=== PATIENT | female | born 1970 | race Two or more races ===

== ENCOUNTER 2024-07-31 08:59 | Outpatient (AMB) | payer MEDICAID, SELFPAY ==
[2024-07-31 09:31] VITALS: BP 123/84; PULSE 75; RESP 18; TEMP 36.3; O2SAT 97; BMI 24.8
--- NOTE | 2024-07-31 09:31 | ORTHONT_ITS ---
Vital signs 07/31/24 09:31 Height 1.47 m Height Method Stated Weight 53.637 kg Weight Measurement Method Standing Scale BMI 24.8 BP 123/84 Blood Pressure Source Automatic Cuff Blood Pressure Location Right Upper Arm Position Sitting Respiration 18 Pulse 75 Pulse Source Monitor Temp 97.4 F Temp Source Temporal Artery Scan Pulse Oximetry (%) 97 Oxygen Delivery Method Room Air Med/Allergies Allergies & Medications Allergies meloxicam Allergy (Mild, Verified 07/31/24 09:32) Rash Medication Reconciliation multivitamin 1 tab PO QDAY 03/23/24 [History Confirmed 07/31/24] acetaminophen 500 mg tablet (Acetaminophen Extra Strength) 1,000 mg (2 x 500 mg) PO Q6H PRN pain #90 tabs 04/02/24 [Rx Confirmed 07/31/24] aspirin 81 mg tablet,delayed release 81 mg PO BID #60 tabs 04/02/24 [Rx Confir med 07/31/24] doxycycline hyclate 100 mg tablet 100 mg PO BID #14 tabs 04/02/24 [Rx Confirmed 07/31/24] oxycodone 5 mg tablet 5 mg PO Q6H PRN pain #28 tabs 04/02/24 [Rx Confirmed 07/31/24] pregabalin 75 mg capsule 75 mg PO BID #45 caps 04/02/24 [Rx Confirmed 07/31/24] sennosides 8.6 mg-docusate sodium 50 mg tablet (Senna-S) 1 tab-cap PO QDAY #30 tabs 04/02/24 [Rx Confirmed 07/31/24] Subjective Visit Visit for: follow up visit, post op #2 and knee Immunization / Flu Flu Vaccine in the Last 12 Months: Yes Flu Vaccine Exclusion Criteria: Already Received History of Present Illness Chief complaint: POST OP KNEE TKA Date of 1st surgery (if applicable): 04/02/24 Patient is 12 weeks status post right total knee replacement. She is happy with her progress. She is not using any assistive device. Personal History Occupation: DISABLE Red flag PMH: none Pain Pain level (0-10): 4 Pain duration: COMES & GOES Pain location: inside (medial), outside (lateral), anterior and posterior Pain quality: sharp, dull and aching Pain timing: increases with activity Associated signs & symptoms: none Ambulatory data Ambulatory device: none Treatments Improvement with previous injections: No Improvement with PT: No Improvement with NSAIDS: n/a Review of Systems Review of Systems: All systems negative unless otherwise noted in HPI. Exam Exam Patient is in no acute distress and is cooperative with the examination today. Patient has a normal mood and affect. Breathing is nonlabored. In no respiratory distress. Bilateral extremities were evaluated and demonstrates sensation intact to light touch. Palpable pedal pulses are present. No significant edema is present. Right knee incision is clean dry intact. Range of motion 0 to 110 degrees Assessment and Plan Problem List (1) Arthritis of both knees: Status: Acute (2) Status post total right knee replacement: Status: Acute Plan 54-year-old female status post right total knee replacement. She is doing well. She has minimal pain She is doing well. We will see her in 4 months. Office Procedures GNS Level of Care Nursing/Assessment Patient Status: Established Patient Nursing Assessment/Reassesment: Medication Reconciliation, Update PMH in EMR and Vital Signs Coordination of Care: Complex Care and Chronic Disease 1-5, Education Complex Pt/Fam, Consent,records obtained, informed consent, Results/Orders obtained and Staff clarify orders Established Patient Charge Established Patient Point Assignment: 95 Established Patient Point Charge: EP Level 3 (80-115) Past Medical History Past Medical History Have you ever been diagnosed with any of the following: Neurological Problems Seizures: No Cardiology Problems Hypercholesterolemia: Yes Congestive Heart Failure: No Respiratory Problems Chronic Obstructive Pulmonary Disease (COPD): No Smoking: No Smoking Exposure: No Stomache/Intestinal Problems Hepatitis: No Genital/Urinary Problems Renal Disease: No Reproductive Problems Previous Pregnancies: Yes Musculoskeletal Problems Arthritis: Yes Endocrine Problems Diabetes Mellitus Type 1: No Diabetes Mellitus Type 2: No Other Problems Hospitalization: No Shingles: No Blood Transfusions: No Blood Transfusion Reaction: No Anesthesia Reactions: No Chicken Pox: Yes Mumps: Yes Cancer: No Surgical History Total Knee Replacement: Yes
== END 2024-07-31 09:53 | disposition home or self-care (01) ==
LOC: HODSRG 08:59
PROVIDERS: PCP Family Medicine; Referring Provider Family Medicine; Supervising Provider Orthopaedic Surgery Adult Reconstructive Orthopaedic Surgery; Visit Provider Orthopaedic Surgery Adult Reconstructive Orthopaedic Surgery
DX: M17.0 Bilateral primary osteoarthritis of knee (principal); Z96.651 Presence of right artificial knee joint; E78.00 Pure hypercholesterolemia, unspecified
CPT/HCPCS: 99213; G0463

== ENCOUNTER 2024-11-20 08:57 | Outpatient (AMB) | payer MEDICAID, SELFPAY ==
[2024-11-20 09:15] VITALS: BP 119/72; PULSE 76; RESP 18; TEMP 36.3; O2SAT 98; BMI 26.5
--- NOTE | 2024-11-20 09:15 | PD.ORTHCLVIS ---
Vital signs 11/20/24 09:15 11/20/24 09:18 Height 1.47 m 1.47 m Height Method Stated Stated Weight 57.408 kg 57.408 kg Weight Measurement Method Standing Scale Standing Scale BMI 26.5 26.5 BP 119/72 119/72 Blood Pressure Source Automatic Cuff Automatic Cuff Blood Pressure Location Right Upper Arm Right Upper Arm Position Sitting Sitting Respiration 18 18 Pulse 76 76 Pulse Source Monitor Monitor Temp 97.3 F 97.3 F Temp Source Temporal Artery Scan Temporal Artery Scan Pulse Oximetry (%) 98 98 Oxygen Delivery Method Room Air Room Air Med/Allergies Allergies & Medications Allergies meloxicam Allergy (Mild, Verified 07/31/24 09:32) Rash Medication Reconciliation multivitamin 1 tab PO QDAY 03/23/24 [History Confirmed 11/20/24] acetaminophen 500 mg tablet (Acetaminophen Extra Strength) 1,000 mg (2 x 500 mg) PO Q6H PRN pain #90 tabs 04/02/24 [Rx Confirmed 11/20/24] aspirin 81 mg tablet,delayed release 81 mg PO BID #60 tabs 04/02/24 [Rx Confirmed 11/20/24] doxycycline hyclate 100 mg tablet 100 mg PO BID #14 tabs 04/02/24 [Rx Confirmed 11/20/24] oxycodone 5 mg tablet 5 mg PO Q6H PRN pain #28 tabs 04/02/24 [Rx Confirmed 11/20/24] pregabalin 75 mg capsule 75 mg PO BID #45 caps 04/02/24 [Rx Confirmed 11/20/24] sennosides 8.6 mg-docusate sodium 50 mg tablet (Senna-S) 1 tab-cap PO QDAY #30 tabs 04/02/24 [Rx Confirmed 11/20/24] Exam Exam Patient is in no acute distress and is cooperative with the examination today. Patient has a normal mood and affect. Breathing is nonlabored. In no respiratory distress. Bilateral extremities were evaluated and demonstrates sensation intact to light touch. Palpable pedal pulses are present. No significant edema is present. Right knee incision is clean dry intact. Range of motion 0 to 110 degrees Left knee is tender to palpation medially. Knee feels stable varus valgus stress of the translation. Range of motion 0 to 100 degrees Assessment and Plan Problem List (1) Arthritis of both knees: Status: Acute (2) Status post total right knee replacement: Status: Acute Plan 54-year-old female status post right total knee replacement. She is doing well. She has minimal pain She is doing well With a right total knee replacement. She would like to get surgery on the left in approximately 6 to 7 months Office Procedures GNS Level of Care Nursing/Assessment Patient Status: Established Patient Nursing Assessment/Reassesment: Medication Reconciliation, Update PMH in EMR and Vital Signs Coordination of Care: Complex Care and Chronic Disease 1-5, Education Complex Pt/Fam, Consent,records obtained, informed consent, Results/Orders obtained and Staff clarify orders Special Needs: Language special needs Established Patient Charge Established Patient Point Assignment: 95 Established Patient Point Charge: EP Level 3 (80-115) MA Intake Visit Data Collection New Patient or Established: Established Patient (seen at [facility] within 3 years) Reason for Visit:: 4 MONTH FOLLLOW UP Seen by Clinical Staff ONLY (RN/MA): No Verbal consent obtained for Telemed visit?: No [employer] Required: No PCP or OBGYN visit in last 3 months: Yes Hx Now: No Do You Feel Safe at Home: Yes Authorities Contacted: N/A Questionairres Past Medical History Past Medical History Have you ever been diagnosed with any of the following: Neurological Problems Seizures: No Cardiology Problems Hypercholesterolemia: Yes Congestive Heart Failure: No Respiratory Problems Chronic Obstructive Pulmonary Disease (COPD): No Smoking: No Smoking Exposure: No Stomache/Intestinal Problems Hepatitis: No Genital/Urinary Problems Renal Disease: No Reproductive Problems Previous Pregnancies: Yes Musculoskeletal Problems Arthritis: Yes Endocrine Problems Diabetes Mellitus Type 1: No Diabetes Mellitus Type 2: No Other Problems Hospitalization: No Shingles: No Blood Transfusions: No Blood Transfusion Reaction: No Anesthesia Reactions: No Chicken Pox: Yes Mumps: Yes Cancer: No Surgical History Total Knee Replacement: Yes Subjective Visit Visit for: follow up visit and knee Immunization / Flu Flu Vaccine in the Last 12 Months: No Flu Vaccine Exclusion Criteria: No Exclusion Criteria History of Present Illness Chief complaint: Right knee pain Augustine is a pleasant 54-year-old female who is status post right total knee replacement 8 months ago. She reports the left knee is what is bothering her and is affecting her quality life. She cannot get surgery as her daughter is having twins soon and she needs to be available to take care of them. She would like to get surgery in June Pain Pain level (0-10): 6 Pain duration: COMES AND GOES Pain location: inside (medial), outside (lateral) and anterior Pain quality: sharp, dull and aching Pain timing: increases with activity Associated signs & symptoms: none Ambulatory data Ambulatory device: none Treatments Improvement with previous injections: No Improvement with PT: No Improvement with NSAIDS: no Review of Systems Review of Systems: All systems negative unless otherwise noted in HPI.
[2024-11-20 09:18] VITALS: BP 119/72; PULSE 76; RESP 18; TEMP 36.3; O2SAT 98; BMI 26.5
== END 2024-11-20 09:23 | disposition home or self-care (01) ==
LOC: HODSRG 08:57
PROVIDERS: PCP Family Medicine; Referring Provider Family Medicine; Supervising Provider Orthopaedic Surgery Adult Reconstructive Orthopaedic Surgery; Visit Provider Orthopaedic Surgery Adult Reconstructive Orthopaedic Surgery
DX: M17.0 Bilateral primary osteoarthritis of knee (principal); Z96.651 Presence of right artificial knee joint; E78.00 Pure hypercholesterolemia, unspecified
CPT/HCPCS: 99213; G0463

== ENCOUNTER 2025-03-12 10:53 | Outpatient (AMB) | payer MEDICAID, SELFPAY ==
[2025-03-12 11:13] VITALS: BP 115/75; PULSE 61; RESP 18; TEMP 36; O2SAT 98; BMI 26.6
--- NOTE | 2025-03-12 11:13 | ORTHONT_ITS ---
Vital signs 03/12/25 11:13 Height 1.47 m Height Method Stated Weight 57.72 kg Weight Measurement Method Standing Scale BMI 26.6 BP 115/75 Blood Pressure Source Automatic Cuff Blood Pressure Location Left Upper Arm Position Sitting Respiration 18 Pulse 61 Pulse Source Monitor Temp 96.8 F Temp Source Temporal Artery Scan Pulse Oximetry (%) 98 Oxygen Delivery Method Room Air Med/Allergies Allergies & Medications Allergies meloxicam Allergy (Mild, Verified 03/12/25 11:14) Rash Medication Reconciliation multivitamin 1 tab PO QDAY 03/23/24 [History Confirmed 03/12/25] pregabalin 75 mg capsule 75 mg PO BID #45 caps 04/02/24 [Rx Confirmed 03/12/25] Exam Exam Patient is in no acute distress and is cooperative with the examination today. Patient has a normal mood and affect. Breathing is nonlabored. In no respiratory distress. Bilateral extremities were evaluated and demonstrates sensation intact to light touch. Palpable pedal pulses are present. No significant edema is present. Right knee incision is clean dry intact. Range of motion 0 to 110 degrees Left knee is tender to palpation medially. Knee feels stable varus valgus stress of the translation. Range of motion 0 to 100 degrees Left knee xrays demonstrate significant joint space narrowing medially and complete joint space obliteration and osteophytes. Assessment and Plan Problem List (1) Arthritis of both knees: Status: Acute (2) Status post total right knee replacement: Status: Acute (3) Arthritis of left knee: Status: Acute Plan: The patient has severe arthritis of the left knee with complete obliteration of the medial joint space. She is failed conservative treatment including over 4 injections, anti-inflammatories, and physical therapy. I have been seeing Latasha since my previous practice 3 years ago for her knee pain. She Has severe arthritis and She now wants to get surgery as this knee is affecting her quality life and happiness. Given that she has failed conservative treatment I think this is a reasonable option The nature and purpose of the total knee replacement, alternative method(s) of treatment, the material risks involved, and the possibility of complications were fully explained to the patient. The patient does NOT have any of the following contraindications to TKA: - Active infection of the knee joint, OR - Active systemic bacteremia, OR - Active skin infection or open wound at surgical site, OR - Neuropathic arthritis, OR - Severe, rapidly progressive neurological disease, OR - Severe medical condition that makes risks of surgery outweigh the potential benefit The patient was told the most common risks and complications associated with a total knee replacement include, but are not limited to: blood clots in the leg, fatal pulmonary embolism, dislocation of the prosthesis, intraoperative and postoperative fractures of the femur or tibia, infection, failure of the prosthesis or grafting materials, complications from anesthesia, reactions to blood transfusions, postoperative leg length inequality, instability of the knee replacement, nerve damage or injury, vascular injury, delayed wound healing, infection, other injury or even . In addition, there are risks associated with anesthesia given during this operation. Also, the patient was told that after undergoing a total knee replacement there may still be persistent pain or disability. The patient was informed that the success of this operation in part depends upon the mechanical devices which are going to be implanted and that these devices can fail or malfunction, and may need to be repaired or replaced and there are no guarantees as to the longevity of this device or its parts and that it or its parts could fail prematurely. The patient was also notified that during the course of surgery, there may be a need to use bone graft from donors, and that any bone graft used will be carefully screened for communicable diseases, including AIDS, hepatitis, Kulwinder-Creutzfeldt, or other diseases, but despite the screening procedures, there is a small chance that they could contract one of these diseases. Finally, the patient was asked to follow completely and fully with all advice and recommended treatments, and that recovery and ultimate outcome are affected by their compliance with recommended treatment. We discussed the risks, benefits and treatment alternatives, and the patient is interested in proceeding with surgery. We will try to set this up as expeditiously as possible. Plan 54-year-old female status post right total knee replacement. She is doing well. She has minimal pain on the right She is doing well With a right total knee replacement. Office Procedures GNS Level of Care Nursing/Assessment Patient Status: Established Patient Nursing Assessment/Reassesment: Medication Reconciliation, Update PMH in EMR and Vital Signs Coordination of Care: Complex Care and Chronic Disease 1-5, Education Complex Pt/Fam, Consent,records obtained, informed consent, Lab and Imaging orders, Results/Orders obtained and Staff clarify orders Established Patient Charge Established Patient Point Assignment: 110 Established Patient Point Charge: EP Level 3 (80-115) [place] Intake Visit Data Collection New Patient or Established: Established Patient (seen at [facility] within 3 years) Reason for Visit:: WORSENING LEFT KNEE PAIN Seen by Clinical Staff ONLY (RN/MA): No Verbal consent obtained for Telemed visit?: No [employer] Required: No PCP or OBGYN visit in last 3 months: Yes Hx Now: No Do You Feel Safe at Home: Yes Authorities Contacted: N/A Questionairres Past Medical History Past Medical History Have you ever been diagnosed with any of the following: Neurological Problems Seizures: No Cardiology Problems Hypercholesterolemia: Yes Congestive Heart Failure: No Respiratory Problems Chronic Obstructive Pulmonary Disease (COPD): No Smoking: No Smoking Exposure: No Stomache/Intestinal Problems Hepatitis: No Genital/Urinary Problems Renal Disease: No Reproductive Problems Previous Pregnancies: Yes Musculoskeletal Problems Arthritis: Yes Endocrine Problems Diabetes Mellitus Type 1: No Diabetes Mellitus Type 2: No Other Problems Hospitalization: No Shingles: No Blood Transfusions: No Blood Transfusion Reaction: No Anesthesia Reactions: No Chicken Pox: Yes Mumps: Yes Cancer: No Surgical History Total Knee Replacement: Yes Subjective Visit Visit for: follow up visit and knee Immunization / Flu Flu Vaccine in the Last 12 Months: No Flu Vaccine Exclusion Criteria: No Exclusion Criteria History of Present Illness Chief complaint: WORSENING LEFT KNEE PAIN Date of injury / onset of symptoms: YEARS Date of 1st surgery (if applicable): RIGHT KNEE TKA Provide is a pleasant 54-year-old female who is status post right total knee replacement 12 months ago. She reports the left knee is what is bothering her and is affecting her quality life. She has tried multiple injections (over 5), physical therapy, and NSAIDs. She reports the knee pain is affecting her quality of life and happiness. Personal History Occupation: UNEMPLOYED Red flag PMH: none BMI Counceling provided: No Pain Pain level (0-10): 8 Pain duration: CONSTANT Pain location: inside (medial), outside (lateral), anterior and posterior Pain quality: sharp, dull, aching, shocking and tingling Pain timing: night, increases with activity and stairs Associated signs & symptoms: numbness Ambulatory data Ambulatory device: none Treatments Number of previous injections: 3 Improvement with previous injections: Yes Improvement with PT: No Improvement with NSAIDS: no Review of Systems Review of Systems: All systems negative unless otherwise noted in HPI.
== END 2025-03-12 11:28 | disposition home or self-care (01) ==
LOC: HODSRG 10:53
PROVIDERS: PCP Family Medicine; Referring Provider Family Medicine; Supervising Provider Orthopaedic Surgery Adult Reconstructive Orthopaedic Surgery; Visit Provider Orthopaedic Surgery Adult Reconstructive Orthopaedic Surgery
DX: M17.0 Bilateral primary osteoarthritis of knee (principal); Z96.651 Presence of right artificial knee joint; E78.00 Pure hypercholesterolemia, unspecified
CPT/HCPCS: 99213; G0463

== ENCOUNTER 2025-04-04 10:52 | Outpatient (AMB) | payer MEDICAID, SELFPAY ==
--- NOTE | 2025-04-04 11:11 | ORTHONT_ITS ---
Vital signs 04/04/25 11:13 Height 1.47 m Height Method Stated Weight 58.23 kg Weight Measurement Method Standing Scale BMI 26.9 BP 103/69 Blood Pressure Source Automatic Cuff Blood Pressure Location Left Upper Arm Position Sitting Respiration 18 Pulse 82 Pulse Source Monitor Temp 97.6 F Temp Source Temporal Artery Scan Pulse Oximetry (%) 94 L Oxygen Delivery Method Room Air Med/Allergies Allergies & Medications Allergies meloxicam Allergy (Mild, Verified 04/04/25 11:14) Rash Medication Reconciliation multivitamin 1 tab PO QDAY 03/23/24 [History Confirmed 04/04/25] pregabalin 75 mg capsule 75 mg PO BID #45 caps 04/02/24 [Rx Confirmed 04/04/25] Exam Exam Patient is in no acute distress and is cooperative with the examination today. Patient has a normal mood and affect. Breathing is nonlabored. In no respiratory distress. Bilateral extremities were evaluated and demonstrates sensation intact to light touch. Palpable pedal pulses are present. No significant edema is present. Right knee incision is clean dry intact. Range of motion 0 to 110 degrees Left knee is tender to palpation medially. Knee feels stable varus valgus stress of the translation. Range of motion 0 to 100 degrees Left knee xrays demonstrate significant joint space narrowing medially and complete joint space obliteration and osteophytes. Assessment and Plan Problem List (1) Arthritis of both knees: Status: Acute (2) Status post total right knee replacement: Status: Acute (3) Arthritis of left knee: Status: Acute Plan: The patient has severe arthritis of the left knee with complete obliteration of the medial joint space. She is failed conservative treatment including over 4 injections, anti-inflammatories, and physical therapy. I have been seeing Latasha since my previous practice 3 years ago for her knee pain. She Has severe arthritis and She now wants to get surgery as this knee is affecting her quality life and happiness. Given that she has failed conservative treatment I think this is a reasonable option Her BMI is apparently 26. The nature and purpose of the total knee replacement, alternative method(s) of treatment, the material risks involved, and the possibility of complications were fully explained to the patient. The patient does NOT have any of the following contraindications to TKA: - Active infection of the knee joint, OR - Active systemic bacteremia, OR - Active skin infection or open wound at surgical site, OR - Neuropathic arthritis, OR - Severe, rapidly progressive neurological disease, OR - Severe medical condition that makes risks of surgery outweigh the potential benefit The patient was told the most common risks and complications associated with a total knee replacement include, but are not limited to: blood clots in the leg, fatal pulmonary embolism, dislocation of the prosthesis, intraoperative and postoperative fractures of the femur or tibia, infection, failure of the prosthesis or grafting materials, complications from anesthesia, reactions to blood transfusions, postoperative leg length inequality, instability of the knee replacement, nerve damage or injury, vascular injury, delayed wound healing, infection, other injury or even . In addition, there are risks associated with anesthesia given during this operation. Also, the patient was told that after undergoing a total knee replacement there may still be persistent pain or disability. The patient was informed that the success of this operation in part depends upon the mechanical devices which are going to be implanted and that these devices can fail or malfunction, and may need to be repaired or replaced and there are no guarantees as to the longevity of this device or its parts and that it or its parts could fail prematurely. The patient was also notified that during the course of surgery, there may be a need to use bone graft from donors, and that any bone graft used will be carefully screened for communicable diseases, including AIDS, hepatitis, Kulwinder-Creutzfeldt, or other diseases, but despite the screening procedures, there is a small chance that they could contract one of these diseases. Finally, the patient was asked to follow completely and fully with all advice and recommended treatments, and that recovery and ultimate outcome are affected by their compliance with recommended treatment. We discussed the risks, benefits and treatment alternatives, and the patient is interested in proceeding with surgery. We will try to set this up as expeditiously as possible. Plan 54-year-old female status post right total knee replacement. She is doing well. She has minimal pain on the right She is doing well With a right total knee replacement. Office Procedures GNS Level of Care Nursing/Assessment Patient Status: Established Patient Nursing Assessment/Reassesment: Medication Reconciliation, Update PMH in EMR and Vital Signs Coordination of Care: Complex Care and Chronic Disease 1-5, Education Complex Pt/Fam, Consent,records obtained, informed consent, Results/Orders obtained and Staff clarify orders Established Patient Charge Established Patient Point Assignment: 95 Established Patient Point Charge: Level 3 (80-115) [place] Intake Visit Data Collection New Patient or Established: Established Patient (seen at [facility] within 3 years) Reason for Visit:: WORSENING LEFT KNEE PAIN Seen by Clinical Staff ONLY (RN/MA): No Verbal consent obtained for Telemed visit?: No Toxicology Teacher Required: No PCP or OBGYN visit in last 3 months: Yes Hx Now: No Do You Feel Safe at Home: Yes Authorities Contacted: N/A Questionairres Past Medical History Past Medical History Have you ever been diagnosed with any of the following: Neurological Problems Seizures: No Cardiology Problems Hypercholesterolemia: Yes Congestive Heart Failure: No Respiratory Problems Chronic Obstructive Pulmonary Disease (COPD): No Smoking: No Smoking Exposure: No Stomache/Intestinal Problems Hepatitis: No Genital/Urinary Problems Renal Disease: No Reproductive Problems Previous Pregnancies: Yes Musculoskeletal Problems Arthritis: Yes Endocrine Problems Diabetes Mellitus Type 1: No Diabetes Mellitus Type 2: No Other Problems Hospitalization: No Shingles: No Blood Transfusions: No Blood Transfusion Reaction: No Anesthesia Reactions: No Chicken Pox: Yes Mumps: Yes Cancer: No Surgical History Total Knee Replacement: Yes Subjective Visit Visit for: follow up visit and knee Immunization / Flu Flu Vaccine in the Last 12 Months: No Flu Vaccine Exclusion Criteria: No Exclusion Criteria History of Present Illness Chief complaint: WORSENING LEFT KNEE PAIN Date of injury / onset of symptoms: YEARS Date of 1st surgery (if applicable): RIGHT KNEE TKA Provide is a pleasant 54-year-old female who is status post right total knee replacement 12 months ago. She reports the left knee is what is bothering her and is affecting her quality life. She has tried multiple injections (over 5), physical therapy, and NSAIDs. She reports the knee pain is affecting her quality of life and happiness. Personal History Occupation: UNEMPLOYED Red flag PMH: none BMI Counceling provided: No Pain Pain level (0-10): 8 Pain duration: CONSTANT Pain location: inside (medial), outside (lateral), anterior and posterior Pain quality: sharp, dull, aching, shocking and tingling Pain timing: night, increases with activity and stairs Associated signs & symptoms: numbness Ambulatory data Ambulatory device: none Treatments Number of previous injections: 3 Improvement with previous injections: Yes Improvement with PT: No Improvement with NSAIDS: no Review of Systems Review of Systems: All systems negative unless otherwise noted in HPI.
[2025-04-04 11:13] VITALS: BP 103/69; PULSE 82; RESP 18; TEMP 36.4; O2SAT 94; BMI 26.9
== END 2025-04-04 11:21 | disposition home or self-care (01) ==
LOC: HODSRG 10:52
PROVIDERS: PCP Family Medicine; Referring Provider Family Medicine; Supervising Provider Orthopaedic Surgery Adult Reconstructive Orthopaedic Surgery; Visit Provider Orthopaedic Surgery Adult Reconstructive Orthopaedic Surgery
DX: M17.0 Bilateral primary osteoarthritis of knee (principal); Z96.651 Presence of right artificial knee joint; E78.00 Pure hypercholesterolemia, unspecified
CPT/HCPCS: 99213; G0463

== ENCOUNTER 2025-05-21 09:26 | Outpatient (AMB) | payer MEDICAID, SELFPAY ==
[2025-05-21 09:39] VITALS: BP 129/87; PULSE 71; RESP 18; TEMP 36.5; O2SAT 98; BMI 26.9
--- NOTE | 2025-05-21 09:39 | PD.ORTHCLVIS ---
Vital signs 05/21/25 09:39 Height 1.47 m Height Method Measured Weight 58.145 kg Weight Measurement Method Standing Scale BMI 26.9 BP 129/87 H Blood Pressure Source Automatic Cuff Blood Pressure Location Left Upper Arm Position Sitting Respiration 18 Pulse 71 Pulse Source Monitor Temp 97.7 F Temp Source Temporal Artery Scan Pulse Oximetry (%) 98 Oxygen Delivery Method Room Air Med/Allergies Allergies & Medications Allergies meloxicam Allergy (Mild, Verified 05/21/25 09:41) Rash Medication Reconciliation multivitamin 1 tab PO QDAY 03/23/24 [History Confirmed 05/21/25] pregabalin 75 mg capsule 75 mg PO BID #45 caps 04/02/24 [Rx Confirmed 05/21/25] Exam Exam Patient is in no acute distress and is cooperative with the examination today. Patient has a normal mood and affect. Breathing is nonlabored. In no respiratory distress. Bilateral extremities were evaluated and demonstrates sensation intact to light touch. Palpable pedal pulses are present. No significant edema is present. Right knee incision is clean dry intact. Range of motion 0 to 110 degrees Left knee is tender to palpation medially. Knee feels stable varus valgus stress of the translation. Range of motion 0 to 100 degrees Left knee xrays demonstrate significant joint space narrowing medially and complete joint space obliteration and osteophytes. Assessment and Plan Problem List (1) Arthritis of both knees: Status: Acute (2) Status post total right knee replacement: Status: Acute (3) Arthritis of left knee: Status: Acute Plan: The patient has severe arthritis of the left knee with complete obliteration of the medial joint space. She is failed conservative treatment including over 4 injections, anti-inflammatories, and physical therapy. I have been seeing Latasha since my previous practice 3 years ago for her knee pain. She Has severe arthritis and She now wants to get surgery as this knee is affecting her quality life and happiness. Given that she has failed conservative treatment I think this is a reasonable option Her BMI is apparently 26. The nature and purpose of the total knee replacement, alternative method(s) of treatment, the material risks involved, and the possibility of complications were fully explained to the patient. The patient does NOT have any of the following contraindications to TKA: - Active infection of the knee joint, OR - Active systemic bacteremia, OR - Active skin infection or open wound at surgical site, OR - Neuropathic arthritis, OR - Severe, rapidly progressive neurological disease, OR - Severe medical condition that makes risks of surgery outweigh the potential benefit The patient was told the most common risks and complications associated with a total knee replacement include, but are not limited to: blood clots in the leg, fatal pulmonary embolism, dislocation of the prosthesis, intraoperative and postoperative fractures of the femur or tibia, infection, failure of the prosthesis or grafting materials, complications from anesthesia, reactions to blood transfusions, postoperative leg length inequality, instability of the knee replacement, nerve damage or injury, vascular injury, delayed wound healing, infection, other injury or even . In addition, there are risks associated with anesthesia given during this operation. Also, the patient was told that after undergoing a total knee replacement there may still be persistent pain or disability. The patient was informed that the success of this operation in part depends upon the mechanical devices which are going to be implanted and that these devices can fail or malfunction, and may need to be repaired or replaced and there are no guarantees as to the longevity of this device or its parts and that it or its parts could fail prematurely. The patient was also notified that during the course of surgery, there may be a need to use bone graft from donors, and that any bone graft used will be carefully screened for communicable diseases, including AIDS, hepatitis, Kulwinder-Creutzfeldt, or other diseases, but despite the screening procedures, there is a small chance that they could contract one of these diseases. Finally, the patient was asked to follow completely and fully with all advice and recommended treatments, and that recovery and ultimate outcome are affected by their compliance with recommended treatment. We discussed the risks, benefits and treatment alternatives, and the patient is interested in proceeding with surgery. We will try to set this up as expeditiously as possible. Office Procedures GNS Level of Care Nursing/Assessment Patient Status: Established Patient Nursing Assessment/Reassesment: Medication Reconciliation, Orthostatic Vitals, Update PMH in EMR and Vital Signs Coordination of Care: Complex Care and Chronic Disease 1-5, Education Complex Pt/Fam, Consent,records obtained, informed consent, Results/Orders obtained and Staff clarify orders Established Patient Charge Established Patient Point Assignment: 105 Established Patient Point Charge: Level 3 (80-115) [place] Intake Visit Data Collection New Patient or Established: Established Patient (seen at [facility] within 3 years) Reason for Visit:: PRE OP Seen by Clinical Staff ONLY (RN/MA): No Verbal consent obtained for Telemed visit?: No Ui Engineer Required: No PCP or OBGYN visit in last 3 months: Yes Hx Now: No Do You Feel Safe at Home: Yes Authorities Contacted: N/A Questionairres Past Medical History Past Medical History Have you ever been diagnosed with any of the following: Neurological Problems Seizures: No Cardiology Problems Hypercholesterolemia: Yes Congestive Heart Failure: No Respiratory Problems Chronic Obstructive Pulmonary Disease (COPD): No Smoking: No Smoking Exposure: No Stomache/Intestinal Problems Hepatitis: No Genital/Urinary Problems Renal Disease: No Reproductive Problems Previous Pregnancies: Yes Musculoskeletal Problems Arthritis: Yes Endocrine Problems Diabetes Mellitus Type 1: No Diabetes Mellitus Type 2: No Other Problems Hospitalization: No Shingles: No Blood Transfusions: No Blood Transfusion Reaction: No Anesthesia Reactions: No Chicken Pox: Yes Mumps: Yes Cancer: No Surgical History Total Knee Replacement: Yes Subjective Visit Visit for: follow up visit and knee Immunization / Flu Flu Vaccine in the Last 12 Months: No Flu Vaccine Exclusion Criteria: No Exclusion Criteria History of Present Illness Chief complaint: WORSENING LEFT KNEE PAIN Date of injury / onset of symptoms: YEARS Date of 1st surgery (if applicable): RIGHT KNEE TKA Provide is a pleasant 54-year-old female who is status post right total knee replacement 12 months ago. She reports the left knee is what is bothering her and is affecting her quality life. She has tried multiple injections (over 5), physical therapy, and NSAIDs. She reports the knee pain is affecting her quality of life and happiness. She set up for surgery for her left knee in 2 weeks Personal History Occupation: UNEMPLOYED Red flag PMH: none BMI Counceling provided: No Pain Pain level (0-10): 8 Pain duration: CONSTANT Pain location: inside (medial), outside (lateral), anterior and posterior Pain quality: sharp, dull, aching, shocking and tingling Pain timing: night, increases with activity and stairs Associated signs & symptoms: numbness Ambulatory data Ambulatory device: none Treatments Number of previous injections: 3 Improvement with previous injections: Yes Improvement with PT: No Improvement with NSAIDS: no Review of Systems Review of Systems: All systems negative unless otherwise noted in HPI.
== END 2025-05-21 09:59 | disposition home or self-care (01) ==
LOC: HODSRG 09:26
PROVIDERS: PCP Family Medicine; Referring Provider Family Medicine; Supervising Provider Orthopaedic Surgery Adult Reconstructive Orthopaedic Surgery; Visit Provider Orthopaedic Surgery Adult Reconstructive Orthopaedic Surgery
DX: M17.0 Bilateral primary osteoarthritis of knee (principal); Z96.651 Presence of right artificial knee joint; E78.00 Pure hypercholesterolemia, unspecified; M25.562 Pain in left knee
CPT/HCPCS: 99213; G0463

== ENCOUNTER → 2025-05-21 | Outpatient (CLI) | payer MEDICAID, SELFPAY ==
--- NOTE | 2025-05-21 10:26 | XR_ITS ---
Examination: CT left lower extremity, without contrast. 2-D sagittal reconstructions. 2-D coronal reconstructions. 3-D reconstructions. Date and time of exam:May 21, 2025 1030 hours INDICATIONS: Diagnosis left knee primary unilateral osteoarthritis, left knee pain 2 years CTDI: vol (mGy):10.8 DLP: (mGycm):633 Technique: Multiple 1.25 mm axial sections of the left lower extremity without intravenous contrast have been obtained. 2-D sagittal and coronal reconstructions have been obtained. 3-D reconstructions have been obtained. Low dose protocols were performed. One or more of the following dose reduction techniques were used; automated exposure control, adjustment of the mA and/or KV according to patient size, use of iterative reconstruction technique. Findings: Moderate osteopenia. Mild narrowing left hip joint No left hip fracture or dislocation Significant narrowing medial joint space left knee No fracture No dislocation of the patella IMPRESSION: Significant narrowing medial joint space left knee
== END | disposition home or self-care (01) ==
LOC: CCTX 10:09
PROVIDERS: PCP Family Medicine; Referring Provider Orthopaedic Surgery Adult Reconstructive Orthopaedic Surgery; Visit Provider Orthopaedic Surgery Adult Reconstructive Orthopaedic Surgery
DX: M25.862 Other specified joint disorders, left knee (principal)
CPT/HCPCS: 73700

== ENCOUNTER 2025-05-29 06:30 | Day surgery (SDC) | payer MEDICAID, SELFPAY ==
[2025-05-23 07:58] VITALS: BMI 27.8
--- NOTE | 2025-05-23 08:24 | SUR.PREOP ---
Pt has a round rash on right knee, picture sent to Dr Matos's picture, pt states started after right knee replacement and come and go. Her primary Dr prescribed her antifungal pills and cream, still the rash comes and goes in a different area but around the right knee.
--- NOTE | 2025-05-23 08:27 | SUR.PREOP ---
Dr Matos office called back and its ok to proceed with surgery.
[2025-05-23 10:06] LABS: Basophils # (Auto) 0.1 Thou/mm3 (0.0-0.2); Basophils % (Auto) 2 % (0-2.5); Eosinophils # (Auto) 0.2 Thou/mm3 (0.0-0.5); Eosinophils % (Auto) 3 % (0-10); Hematocrit 40.1 % (36.0-46.0); Hemoglobin 13.1 g/dL (12.0-16.0); Immature Granulocytes Auto 0.02 Thou/mm3 (0.00-0.00); Lymphocytes # (Auto) 2.4 Thou/mm3 (1.0-4.8); Lymphocytes % (Auto) 39 % (10-50); Mean Corpuscular HGB Conc 32.7 g/dl (31.0-37.0); Mean Corpuscular Hemoglobin 29.8 pg (25.0-35.0); Mean Corpuscular Volume 91 fL (80-100); Monocytes # (Auto) 0.6 Thou/mm3 (0.0-0.8); Monocytes % (Auto) 10 % (0-12); Neutrophils # (Auto) 2.8 Thou/mm3 (1.8-7.7); Neutrophils % (Auto) 46 % (37-80); Nucleated Red Blood Cell # 0.00 Thou/mm3 (0.00-0.00); Nucleated Red Blood Cell % 0 /100 WBC (0); Platelet Count 278 Thou/mm3 (140-440); RDW Standard Deviation 46.7 fL (36.4-46.3); Red Blood Count 4.40 Miln/mm3 (4.00-5.20); White Blood Count 6.2 Thou/mm3 (3.6-11.0)
[2025-05-23 10:12] LABS: INR 0.9 (0.9-1.3); Partial Thromboplastin Time 24.9 Seconds (22.0-36.0); Prothrombin Time 10.4 Seconds (9.0-12.2)
[2025-05-23 10:19] LABS: Anion Gap 9 (7-16); BUN/Creatinine Ratio 20 Ratio (12-20); Blood Urea Nitrogen 12 mg/dL (9-23); Calcium 9.3 mg/dL (8.3-10.6); Carbon Dioxide 27.1 mMol/L (20.0-31.0); Chloride 108 mMol/L (98-107); Creatinine (Component) 0.6 mg/dL (0.6-1.3); Estimated Creatinine Clearance 79.6 mL/min (>60); Glucose 98 mg/dL (74-106); Osmolality,Calculated 286 (275-295); Potassium 4.1 mMol/L (3.4-5.1); Sodium 144 mMol/L (136-145); eGFR > 60 See Note
--- NOTE | 2025-05-28 14:36 | SUR.PREOP ---
Pt notified to come in tomorrow at 0700 for surgery.
[2025-05-29] VITALS (16 sets, daily range): BP systolic 93–129; BP diastolic 70–97; PULSE 69–110; RESP 13–20; TEMP 36.2–36.8; O2SAT 97–100; BMI 27.5
--- NOTE | 2025-05-29 07:20 | CHAP ---
Patient was very nervous. I talked with her giving comfort and encouragement. Then I prayed with her for her procedure.
[2025-05-29] MEDS: RINGERS LACTATED 1000 ML 1,000 ML 20 ML IV (07:21)
[2025-05-29] MEDS: PREGABALIN 75 MG CAPSULE PO (07:21)
[2025-05-29] MEDS: ACETAMINOPHEN 325 MG TABLET 650 MG PO (07:22)
--- NOTE | 2025-05-29 10:54 | PD.SUROPNT ---
Date of Procedure 05/29/25 Pre Op Diagnosis left knee osteoarthritis Post Op Diagnosis left knee osteoarthritis Procedure left total knee replacement jules Findings full thickness cartilage loss and osteophytes Procedure Description Indication: The patient has a long history of left knee pain. X-rays show degenerative arthritis involving the knee. Over the past several years the patient has had increasing pain, progressive limitation in function. He has failed conservative measures including activity modification, physical therapy, injections, anti-inflammatories, and assistive devices. After a lengthy discussion of the risks and benefits, the patient presents now for total knee replacement. The nature and purpose of the total knee replacement, alternative method(s) of treatment, the material risks involved, and the possibility of complications were fully explained to the patient. The patient was told the most common risks and complications associated with a total knee replacement include, but are not limited to blood clots in the leg, fatal pulmonary embolism, dislocation of the prosthesis, intraoperative and postoperative fractures of the femur or tibia, infection, failure of the prosthesis or grafting materials, complications from anesthesia, reactions to blood transfusions, postoperative leg length inequality, instability of the knee replacement, nerve damage or injury, vascular injury, delayed wound healing, infections, other injury or even . In addition, there are risks associated with anesthesia given during this operation, temporary or permanent numbness on the skin lateral to the incision can be a complication unique to total knee surgery, and kneeling can be painful after knee replacement surgery. Also, the patient was told that after undergoing a total knee replacement there may still be pain or disability. We discussed with the patient that we will be using a robot-assisted technology. We discussed that there is a possibility of converting to manual instrumentation. The patient was informed that the success of this operation in part depends upon the mechanical devices which are going to be implanted and that these devices can fail or malfunction, and may need to be repaired or replaced and there are no guarantees as to the longevity of this device or its part and that it or its parts could fail prematurely. Finally, the patient was asked to follow completely and fully with all advice and recommended treatments, and that recovery and ultimate outcome are affected by their compliance with recommended treatment. Surgical technique: Patient was marked and consented in the pre-operative area. The patient was brought to the operating room and placed on the operating table in a supine position. Prior to positioning, a timeout procedure was performed between the surgeon, the anesthesiologist, and the nursing staff where the patient and the operative side were identified and confirmed. After adequate general anesthetic was obtained, the left lower extremity was prepped and draped in the usual sterile fashion. A weight based dose of Cefazolin were administered within 1 hour prior to incision. The robot was preregistered and calibrated before the incision. The extremity was exsanguinated with an esmarch badge and tourniquet inflated to 250mmHg. A midline incision was made. A median parapatellar arthrotomy was made. The patella was subluxed laterally. A medial release was performed to expose the medial tibia. His femoral and tibial pins were placed through an intra incisional manner for both cases. Every effort was made to ensure that the distalmost aspect of the pin was hung in the second cortex. The arrays were then tightened several times to ensure that it was fixed for the remainder of the case. Both femoral and tibial checkpoints were then placed. We then went through the registration process of the bone. We then assessed the knee deformity and attempted to correct it. We also used the robot to aid in judging laxity in both extension and flexion. Final based on laxity and alignment we changed the preoperative assessment to obtain proper proper implant positioning and to correct deformity. Attention was then placed to the tibia. We made a tibial cut using the robot ensuring that both the MCL and the patella tendon were protected with retractors. We then went to the femur and made the posterior cut followed by the anterior cut and the anterior chamfer. The bone was then removed and we made a distal femur cut and a posterior chamfer cut. We verified all cuts. A trial reduction was performed with a size 1 femoral component and a size 1 keeled tibial component. T The patella tracked centrally, and no lateral retinacular release was necessary. The trial implants were removed. The arrays, pins, and checkpoints were all removed. We performed a verification that all pins were removed. The cut bone surfaces were lavaged. A size 1 left femoral component, a size 1 keeled tibial component were impacted into position. The knee was felt to be well balanced in the sagittal and coronal plane. The final 1x11 mm cruciate-substituting articular insert was impacted into the tibial tray. The knee was brought out to full extension, flexed up to 120 degrees. It was stable to varus and valgus stress and appropriately balanced in flexion and extension. The wounds were copiously irrigated following deflation of tourniquet. The medial retinaculum was reapproximated with #1 vicryl and quill. The subcutaneous tissues were closed with 0 and 2-0 interrupted Vicryl. The skin was closed with 3-0 Monofilament V loc suture. A sterile dressing was applied. The patient was transferred to a bed and brought to recovery in stable condition. The patient tolerated the procedure well. There were no intraoperative complications. Sponge and needle counts were correct times 2. As the attending surgeon, I attest I was present and performed the entire operation. Grafts/Implants Size 1 CR Femur Size 1 Tibia 11mm poly CS Anesthesia spinal Implants [employer] Pathology / specimen None Pathology comment: none Estimated Blood Loss 150 Condition Stable Disposition same day Surgeon Franki Matos MD Surgical Staff Operation Date: 05/29/25 09:45 Case Staff Anesthesiologist: Joe Mcgee RN First Assistant: Fatoumata Dowell
--- NOTE | 2025-05-29 10:56 | XR_ITS ---
Examination: Left knee 2 views Technique one AP lateral left knee 2 views Date and time: May 29, 2025 11:21 AM INDICATIONS: Postop knee arthroplasty today. FINDINGS: Total left knee arthroplasty. Satisfactory alignment No fracture Moderate osteopenia IMPRESSION: Total left knee arthroplasty with satisfactory alignment
--- NOTE | 2025-05-29 11:14 | SUR.PHASEI ---
1114: Pt. AAOx4, vitals stable, breathing unlabored, no complaint of pain or nausea, dressing to left knee CDI, no active bleed noted, bilateral dorsalis pedis pulses strong and regular, cap refill to bilateral feet less than 3 seconds, report received from MD Mcgee and Kyleigh DUCKWORTH.
--- NOTE | 2025-05-29 13:30 | SUR.PHASEII ---
1330: Pt. AAOx4, vitals stable, breathing unlabored, no complaint of pain or nausea, dressing to left knee CDI, no active bleed noted, pt. resting with family at bedside. Report given to Moncho DUCKWORTH to resume care.
[2025-05-29] MEDS: fentaNYL CIT INJ 50 mCg/ML AMP 2ML 25 MCG IVP (13:49)
--- NOTE | 2025-05-29 14:00 | SUR.PHASEII ---
1400: Report received from Moncho DUCKWORTH, no new changes to pt. condition.
[2025-05-29] MEDS: oxyCODONE HCL 5 MG IR TAB PO (14:43)
--- NOTE | 2025-05-29 15:00 | SUR.PHASEII ---
1500: Pt. AAOx4, vitals stable, breathing unlabored, no complaint of pain or nausea, dressing to left leg CDI, no active bleed noted, bilateral dorsalis pedis pulses strong and regular, cap refill to bilateral feet less than 3 seconds, pt. walked well with physical therapy, pt. tolerated sips of water and bites of crackers well, gave discharge instructions to the pt. and her ride, both verbalized understanding and had no further questions. Pt. left with all personal belongings.
== END 2025-05-29 15:00 | disposition home or self-care (01) ==
PROVIDERS: PCP Family Medicine; Referring Provider Orthopaedic Surgery Adult Reconstructive Orthopaedic Surgery; Visit Provider Orthopaedic Surgery Adult Reconstructive Orthopaedic Surgery
PROC: (CPT 20985; principal; 2025-05-29 09:45)
DX: M17.12 Unilateral primary osteoarthritis, left knee (principal); M25.762 Osteophyte, left knee
CPT/HCPCS: 20985; 27447; 36415; 73560; 80048; 85025; 85610; 85730; 97162; A4217; A4649; C1713; C1776; J0690; J1100; J1885; J2250; J2405; J2704; J2795; J3010; J3490; J7120; J7999; A4648; A9270

== ENCOUNTER 2025-06-06 13:20 | Outpatient (AMB) | payer MEDICAID, SELFPAY ==
--- NOTE | 2025-06-06 13:41 | PD.ORTHCLVIS ---
Vital signs 06/06/25 13:42 Height 1.47 m Height Method Stated Weight 57.181 kg Weight Measurement Method Standing Scale BMI 26.4 BP 121/77 Blood Pressure Source Automatic Cuff Blood Pressure Location Left Upper Arm Position Sitting Respiration 18 Pulse 85 Pulse Source Monitor Temp 97.8 F Temp Source Temporal Artery Scan Pulse Oximetry (%) 98 Oxygen Delivery Method Room Air Med/Allergies Allergies & Medications Allergies meloxicam Allergy (Mild, Verified 06/06/25 13:42) Rash Medication Reconciliation multivitamin 1 tab PO QDAY 03/23/24 [History Confirmed 06/06/25] Moringa oleifera 500 mg capsule 500 mg PO DAILY 05/23/25 [History Confirmed 06/06/25] collagen,hydrolysate 500 mg-biotin 800 mcg-ascorbic acid 50 mg capsule (Collagen 1500 Plus C) 1 cap PO DAILY 05/23/25 [History Confirmed 06/06/25] acetaminophen 500 mg tablet (Acetaminophen Extra Strength) 1,000 mg (2 x 500 mg) PO Q6H PRN pain #90 tabs 05/29/25 [Rx Confirmed 06/06/25] aspirin 81 mg tablet,delayed release 81 mg PO BID #60 tabs 05/29/25 [Rx Confirmed 06/06/25] doxycycline hyclate 100 mg tablet 100 mg PO BID #14 tabs 05/29/25 [Rx Confirmed 06/06/25] gabapentin 300 mg capsule 300 mg PO .qhs #30 caps 05/29/25 [Rx Confirmed 06/06/25] oxycodone 5 mg tablet 5 mg PO Q6H PRN pain #28 tabs 05/29/25 [Rx Confirmed 06/06/25] sennosides 8.6 mg-docusate sodium 50 mg tablet (Senna-S) 1 tab-cap PO QDAY #30 tabs 05/29/25 [Rx Confirmed 06/06/25] Exam Exam Patient is in no acute distress and is cooperative with the examination today. Breathing is nonlabored. Patient has a normal mood and affect. The patient has a gait that is nonantalgic Bilateral extremities were evaluated and demonstrates sensation intact to light touch. Palpable pedal pulses are present. No significant edema is present. Bilateral hips were examined. The patient has no pain with log roll of the hips. Internal rotation to 30 degrees and external rotation to 30 degrees is painless. Negative FADIR. Left knee incision is clean dry and intact. Knee feels stable varus valgus stress as well as AP translation Assessment and Plan Problem List (1) Arthritis of both knees: Status: Acute (2) Status post total right knee replacement: Status: Acute (3) Arthritis of left knee: Status: Acute Plan: Patient is doing well status post left total knee replacement. Will have her continue to work with physical therapy. I will see her back in approximately 4 weeks with new x-rays Office Procedures GNS Level of Care Nursing/Assessment Patient Status: Established Patient Nursing Assessment/Reassesment: Medication Reconciliation, Update PMH in EMR and Vital Signs Coordination of Care: Complex Care and Chronic Disease 1-5, Education Complex Pt/Fam, Consent,records obtained, informed consent, Results/Orders obtained and Staff clarify orders Special Needs: Language special needs Established Patient Charge Established Patient Point Assignment: 95 Established Patient Point Charge: Level 3 (80-115) MA Intake Visit Data Collection New Patient or Established: Established Patient (seen at [facility] within 3 years) Reason for Visit:: L TKA Seen by Clinical Staff ONLY (RN/MA): No Verbal consent obtained for Telemed visit?: No Entry Operator Required: No PCP or OBGYN visit in last 3 months: Yes Hx Now: No Do You Feel Safe at Home: Yes Authorities Contacted: N/A Questionairres Past Medical History Past Medical History Have you ever been diagnosed with any of the following: Neurological Problems Seizures: No Cardiology Problems Hypercholesterolemia: Yes Congestive Heart Failure: No Respiratory Problems Chronic Obstructive Pulmonary Disease (COPD): No Smoking: No Smoking Exposure: No Stomache/Intestinal Problems Hepatitis: No Genital/Urinary Problems Renal Disease: No Reproductive Problems Previous Pregnancies: Yes Musculoskeletal Problems Arthritis: Yes Endocrine Problems Diabetes Mellitus Type 1: No Diabetes Mellitus Type 2: No Other Problems Hospitalization: No Shingles: No Blood Transfusions: No Blood Transfusion Reaction: No (n/a) Anesthesia Reactions: No Chicken Pox: Yes Mumps: Yes Cancer: No Surgical History Total Knee Replacement: Yes Subjective Visit Visit for: follow up visit and knee Immunization / Flu Flu Vaccine in the Last 12 Months: No Flu Vaccine Exclusion Criteria: No Exclusion Criteria History of Present Illness Chief complaint: WORSENING LEFT KNEE PAIN Date of injury / onset of symptoms: YEARS Date of 1st surgery (if applicable): RIGHT KNEE TKA Provide is a pleasant 54-year-old female who is status post left total knee replacement. She is doing well. Her pain is as appropriate for being 8 days postop Personal History Occupation: UNEMPLOYED Red flag PMH: none BMI Counceling provided: No Pain Pain level (0-10): 8 Pain duration: CONSTANT Pain location: inside (medial), outside (lateral), anterior and posterior Pain quality: sharp, dull, aching, shocking and tingling Pain timing: night, increases with activity and stairs Associated signs & symptoms: numbness Ambulatory data Ambulatory device: none Treatments Number of previous injections: 3 Improvement with previous injections: Yes Improvement with PT: No Improvement with NSAIDS: no Review of Systems Review of Systems: All systems negative unless otherwise noted in HPI.
[2025-06-06 13:42] VITALS: BP 121/77; PULSE 85; RESP 18; TEMP 36.6; O2SAT 98; BMI 26.4
== END 2025-06-06 13:53 | disposition home or self-care (01) ==
LOC: HODSRG 13:20
PROVIDERS: PCP Family Medicine; Referring Provider Family Medicine; Supervising Provider Orthopaedic Surgery Adult Reconstructive Orthopaedic Surgery; Visit Provider Orthopaedic Surgery Adult Reconstructive Orthopaedic Surgery
DX: Z47.1 Aftercare following joint replacement surgery (principal); Z96.652 Presence of left artificial knee joint; M17.11 Unilateral primary osteoarthritis, right knee
CPT/HCPCS: 99213; G0463

== ENCOUNTER 2025-07-23 07:57 | Outpatient (AMB) | payer MEDICAID, SELFPAY ==
--- NOTE | 2025-07-23 08:11 | ORTHONT_ITS ---
Vital signs 07/23/25 08:13 Height 1.47 m Height Method Stated Weight 58.967 kg Weight Measurement Method Standing Scale BMI 27.3 BP 128/82 Blood Pressure Source Automatic Cuff Blood Pressure Location Left Upper Arm Position Sitting Respiration 18 Pulse 85 Pulse Source Monitor Temp 97.1 F Temp Source Temporal Artery Scan Pulse Oximetry (%) 98 Oxygen Delivery Method Room Air Med/Allergies Allergies & Medications Allergies meloxicam Allergy (Mild, Verified 07/23/25 08:13) Rash Medication Reconciliation multivitamin 1 tab PO QDAY 03/23/24 [History Confirmed 07/23/25] Moringa oleifera 500 mg capsule 500 mg PO DAILY 05/23/25 [History Confirmed 07/23/25] collagen,hydrolysate 500 mg-biotin 800 mcg-ascorbic acid 50 mg capsule (Collagen 1500 Plus C) 1 cap PO DAILY 05/23/25 [History Confirmed 07/23/25] acetaminophen 500 mg tablet (Acetaminophen Extra Strength) 1,000 mg (2 x 500 mg) PO Q6H PRN pain #90 tabs 05/29/25 [Rx Confirmed 07/23/25] aspirin 81 mg tablet,delayed release 81 mg PO BID #60 tabs 05/29/25 [Rx Confirmed 07/23/25] doxycycline hyclate 100 mg tablet 100 mg PO BID #14 tabs 05/29/25 [Rx Confirmed 07/23/25] gabapentin 300 mg capsule 300 mg PO .qhs #30 caps 05/29/25 [Rx Confirmed 07/23/25] oxycodone 5 mg tablet 5 mg PO Q6H PRN pain #28 tabs 05/29/25 [Rx Confirmed 07/23/25] sennosides 8.6 mg-docusate sodium 50 mg tablet (Senna-S) 1 tab-cap PO QDAY #30 tabs 05/29/25 [Rx Confirmed 07/23/25] Exam Exam Patient is in no acute distress and is cooperative with the examination today. Breathing is nonlabored. Patient has a normal mood and affect. The patient has a gait that is nonantalgic Bilateral extremities were evaluated and demonstrates sensation intact to light touch. Palpable pedal pulses are present. No significant edema is present. Bilateral hips were examined. The patient has no pain with log roll of the hips. Internal rotation to 30 degrees and external rotation to 30 degrees is painless. Negative FADIR. Left knee incision is clean dry and intact. Knee feels stable varus valgus stress as well as AP translation Assessment and Plan Problem List (1) Arthritis of both knees: Status: Acute (2) Status post total right knee replacement: Status: Acute (3) Arthritis of left knee: Status: Acute Plan: Patient is doing well status post left total knee replacement. Will have her continue to work with physical therapy. I will see her back in approximately 8 weeks with new x-rays. She will likely get extension for disability for 4 months total as she has a very difficult job Office Procedures GNS Level of Care Nursing/Assessment Patient Status: Established Patient Nursing Assessment/Reassesment: Medication Reconciliation, Update PMH in EMR and Vital Signs Coordination of Care: Complex Care and Chronic Disease 1-5, Education Complex Pt/Fam, Consent,records obtained, informed consent, Results/Orders obtained and Staff clarify orders Established Patient Charge Established Patient Point Assignment: 95 Established Patient Point Charge: EP Level 3 (80-115) MA Intake Visit Data Collection New Patient or Established: Established Patient (seen at [facility] within 3 years) Reason for Visit:: L TKA Seen by Clinical Staff ONLY (RN/MA): No Verbal consent obtained for Telemed visit?: No Change Manager Required: No PCP or OBGYN visit in last 3 months: Yes Hx Now: No Do You Feel Safe at Home: Yes Authorities Contacted: N/A Questionairres Past Medical History Past Medical History Have you ever been diagnosed with any of the following: Neurological Problems Cerebrovascular Accident (CVA): No Transient Ischemic Attacks (TIA): No Dementia: No Alzheimer's Disease: No Parkinson's Disease: No Brain Tumor: No Meningitis: No Seizures: No Epilepsy: No Multiple Sclerosis: No Cerebral Palsy: No Amyotrophic Lateral Sclerosis (ALS/Mandy Gehrig's): No Guillain-[place] Syndrome: No Spina Bifida: No Paralysis: No Peripheral Neuropathy: No Zambrano's Palsy: No Subdural Hematoma: No Migraine: No Head Trauma: No Cardiology Problems Hypercholesterolemia: Yes Congestive Heart Failure: No Respiratory Problems Chronic Obstructive Pulmonary Disease (COPD): No Smoking: No Smoking Exposure: No Stomache/Intestinal Problems Hepatitis: No Genital/Urinary Problems Renal Disease: No Reproductive Problems Previous Pregnancies: Yes Musculoskeletal Problems Arthritis: Yes Endocrine Problems Diabetes Mellitus Type 1: No Diabetes Mellitus Type 2: No Other Problems Hospitalization: No Shingles: No Blood Transfusions: No Blood Transfusion Reaction: No (n/a) Anesthesia Reactions: No Chicken Pox: Yes Mumps: Yes Cancer: No Surgical History Total Knee Replacement: Yes Subjective Visit Visit for: follow up visit and knee (LEFT) Immunization / Flu Flu Vaccine in the Last 12 Months: No Flu Vaccine Exclusion Criteria: No Exclusion Criteria History of Present Illness Chief complaint: 2MTHS LEFT TKA FOLLOW UP Date of injury / onset of symptoms: YEARS Date of 1st surgery (if applicable): RIGHT KNEE TKA Provide is a pleasant 54-year-old female who is status post left total knee replacement. She is doing well. Her pain is appropriate Personal History Occupation: UNEMPLOYED Red flag PMH: none BMI Counceling provided: No Pain Pain level (0-10): 4 Pain duration: CONSTANT Pain location: outside (lateral) and posterior Pain quality: dull Pain timing: night Associated signs & symptoms: numbness Ambulatory data Ambulatory device: cane Treatments Number of previous injections: 3 Improvement with previous injections: Yes Improvement with PT: No Improvement with NSAIDS: no Review of Systems Review of Systems: All systems negative unless otherwise noted in HPI.
[2025-07-23 08:13] VITALS: BP 128/82; PULSE 85; RESP 18; TEMP 36.2; O2SAT 98; BMI 27.3
--- NOTE | 2025-07-23 08:41 | XR_ITS ---
EXAMINATION: Bilateral knees 2 views Right lateral knee left lateral knee 2 views Bilateral Axuni single view TECHNIQUE: Bilateral AP knees standing single view, bilateral PA and a standing single view flexion Standing right lateral knee left lateral knee 2 views Bilateral axial knee single view total 5 views Date and time: July 23, 2025, 0849 hours INDICATIONS: Bilateral knee replacements, left knee 2 months ago right knee 1 year ago FINDINGS: Moderate osteopenia. Bilateral total knee arthroplasties. Satisfactory alignment. No fractures No loosening of the prosthetic components No patellar dislocations IMPRESSION: Bilateral total knee arthroplasties with satisfactory alignment
== END 2025-07-23 08:42 | disposition home or self-care (01) ==
LOC: HODSRG 07:57
PROVIDERS: PCP Family Medicine; Referring Provider Family Medicine; Supervising Provider Orthopaedic Surgery Adult Reconstructive Orthopaedic Surgery; Visit Provider Orthopaedic Surgery Adult Reconstructive Orthopaedic Surgery
DX: Z47.1 Aftercare following joint replacement surgery (principal); Z96.652 Presence of left artificial knee joint
CPT/HCPCS: 73564; 99213; G0463